=== PATIENT | male | born 1945 | race African-American/Black ===

== ENCOUNTER 2016-07-08 09:13 | Outpatient (CLI) | payer MEDICARE ==
[2016-07-08 10:32] LABS: Hemoglobin A1c 6.7 % (4.0-6.0)
[2016-07-08 10:38] LABS: ALT (SGPT) 14 U/L (8-55); AST (SGOT) 10 U/L (5-34); Albumin 3.9 g/dL (3.4-4.8); Alkaline Phosphatase 89 U/L (40-150); Anion Gap 14 mmol/L (10-20); BUN (Urea Nitrogen) 8 mg/dL (8.4-25.7); Bilirubin, Total 0.7 mg/dL (0.2-1.2); Calc. Creatinine Clearance 0 mL/min (70-130); Calcium 8.9 mg/dL (7.8-10.44); Carbon Dioxide 23 mmol/L (23-31); Cardiac Risk 5.3 (Less than 4.5); Chloride 105 mmol/L (98-107); Cholesterol 165 mg/dl (< 200 Desired); Estimated GFR-MDRD Greater than 90; Globulin 3.4 g/dL (2.4-3.5); Glucose 139 mg/dL (80-115); HDL Cholesterol 31 mg/dL (>60 Neg Risk); LDL Cholesterol, Calculated 115 mg/dL; Protein, Total 7.3 g/dL (5.8-8.1); Sodium 138 mmol/L (136-145); Triglycerides 95 mg/dL (Less than 150)
[2016-07-08 10:41] LABS: #Basophils 0.1 thou/uL (0.0-0.2); #Eosinphils 0.1 thou/uL (0.0-0.7); #Lymphocytes 2.6 thou/uL (1.20-3.40); #Monocytes 0.4 thou/uL (0.11-0.59); #Neutrophils 4.7 thou/uL (1.40-6.50); %Basophils 1.4 % (0.0-1.0); %Eosinophils 1.7 % (0.0-10.0); %Lymphocytes 32.4 % (21.0-51.0); %Monocytes 5.2 % (0.0-10.0); %Neutrophils 59.3 % (42.0-75.0); Hemoglobin 15.7 g/dL (14.0-18.0); Mean Corpuscular HGB CONC 31.9 g/dL (32.0-36.0); Mean Corpuscular Hemoglobin 30.1 pg (27.0-31.0); Mean Corpuscular Volume 94.5 fl (80.0-94.0); Mean Platelet Volume 8.7 fL (7.4-10.4); Platelet Count 203 thou/uL (130-400); RBC Distribution Width 13.4 % (11.5-14.5); Red Blood Cell (RBC) Count 5.21 mill/uL (4.70-6.10); White Blood Cell (WBC) Count 7.9 thou/uL (4.8-10.8)
[2016-07-08 10:57] LABS: Free T4 (Free Thyroxine) 0.95 ng/dL (0.70-1.48); Thyroid Stimulating Hormone 0.5506 uIU/mL (0.35-4.94); Vitamin D, 25 Hydroxy 10.7 ng/ml (> 30.0)
== END 2016-07-08 09:14 | disposition home or self-care (01) ==
LOC: MADLABBHPM 09:13
PROVIDERS: ATTEND Family Medicine
DX: Z00.00 Encounter for general adult medical examination without abnormal findings (principal)
CPT/HCPCS: 36415; 80053; 80061; 82306; 83036; 84439; 84443; 85025

== ENCOUNTER 2020-06-10 18:34 | Outpatient (CLI) | payer MEDICARE ==
[2020-06-10 18:54] LABS: ALT (SGPT) 18 U/L (8-55); AST (SGOT) 11 U/L (5-34); Albumin 4.1 g/dL (3.4-4.8); Alkaline Phosphatase 91 U/L (40-110); Anion Gap 13 mmol/L (10-20); BUN (Urea Nitrogen) 7 mg/dL (8.4-25.7); Bilirubin, Total 0.6 mg/dL (0.2-1.2); Calc. Creatinine Clearance 0 mL/min (70-130); Calcium 9.2 mg/dL (7.8-10.44); Carbon Dioxide 31 mmol/L (23-31); Cardiac Risk 4.3 (Less than 4.5); Chloride 101 mmol/L (98-107); Cholesterol 149 mg/dl (< 200 Desired); Globulin 3.6 g/dL (2.4-3.5); Glucose 128 mg/dL (83-110); HDL Cholesterol 35 mg/dL (>60 Neg Risk); LDL Cholesterol, Calculated 97 mg/dL; Potassium 4.1 mmol/L (3.5-5.1); Protein, Total 7.7 g/dL (5.8-8.1); Sodium 141 mmol/L (136-145); Triglycerides 85 mg/dL (Less than 150)
[2020-06-11 12:04] LABS: Hemoglobin A1c 6.5 % (4.0-6.0)
== END 2020-06-10 18:35 | disposition home or self-care (01) ==
LOC: MADLAB 18:34
PROVIDERS: ATTEND Family Medicine
DX: E55.9 Vitamin D deficiency, unspecified (principal); E11.9 Type 2 diabetes mellitus without complications
CPT/HCPCS: 36415; 80053; 80061; 82306; 83036

== ENCOUNTER 2020-09-20 10:34 | Outpatient (CLI) | payer MEDICARE ==
[2020-09-20 11:42] LABS: #Basophils 0.1 thou/uL (0.0-0.2); #Eosinphils 0.1 thou/uL (0.0-0.7); #Lymphocytes 2.3 thou/uL (1.20-3.40); #Monocytes 0.6 thou/uL (0.11-0.59); #Neutrophils 6.7 thou/uL (1.40-6.50); %Basophils 1.4 % (0.0-1.0); %Eosinophils 1.3 % (0.0-10.0); %Lymphocytes 23.5 % (21.0-51.0); %Monocytes 6.4 % (0.0-10.0); %Neutrophils 67.4 % (42.0-75.0); Hemoglobin 14.9 g/dL (14.0-18.0); Mean Corpuscular HGB CONC 30.4 g/dL (32.0-36.0); Mean Corpuscular Hemoglobin 30.1 pg (27.0-31.0); Mean Corpuscular Volume 99.1 fL (78.0-98.0); Mean Platelet Volume 8.9 fL (7.4-10.4); Platelet Count 204 thou/uL (130-400); RBC Distribution Width 14.2 % (11.5-14.5); Red Blood Cell (RBC) Count 4.95 mill/uL (4.70-6.10); White Blood Cell (WBC) Count 9.9 thou/uL (4.8-10.8)
[2020-09-20 12:03] LABS: ALT (SGPT) 15 U/L (8-55); AST (SGOT) 9 U/L (5-34); Albumin 3.9 g/dL (3.4-4.8); Alkaline Phosphatase 71 U/L (40-110); Anion Gap 13 mmol/L (10-20); BUN (Urea Nitrogen) 10 mg/dL (8.4-25.7); Bilirubin, Total 0.6 mg/dL (0.2-1.2); Calc. Creatinine Clearance 0 mL/min (70-130); Carbon Dioxide 29 mmol/L (23-31); Cardiac Risk 4.2 (Less than 4.5); Chloride 107 mmol/L (98-107); Cholesterol 126 mg/dl (< 200 Desired); Globulin 3.2 g/dL (2.4-3.5); Glucose 116 mg/dL (83-110); HDL Cholesterol 30 mg/dL (>60 Neg Risk); LDL Cholesterol, Calculated 79 mg/dL; Potassium 4.2 mmol/L (3.5-5.1); Protein, Total 7.1 g/dL (5.8-8.1); Sodium 145 mmol/L (136-145); Triglycerides 84 mg/dL (Less than 150)
[2020-09-20 16:59] LABS: Hemoglobin A1c 6.6 % (4.0-6.0)
== END 2020-09-20 10:35 | disposition home or self-care (01) ==
LOC: MADLAB 10:34
PROVIDERS: ATTEND Family Medicine
DX: M79.89 Other specified soft tissue disorders (principal); R06.00 Dyspnea, unspecified; I10 Essential (primary) hypertension; E11.9 Type 2 diabetes mellitus without complications
CPT/HCPCS: 36415; 71046; 80053; 80061; 83036; 83880; 84443; 85025

== ENCOUNTER 2021-10-27 10:02 | Emergency (ER) | payer MEDICARE ==
[2021-10-27] MEDS ORDERED: Iopamidol 370 76% 100 ML VIAL ONE (10:19)
[2021-10-27] MEDS ORDERED: methylPREDNISolone Sod Succ/PF 125 MG/2 ML VIAL ONE (10:33)
[2021-10-27] MEDS ORDERED: Albuterol Sulfate 2.5 mg/0.5 ml Neb ONE ×3 (10:33→11:59)
[2021-10-27] MEDS ORDERED: Ipratropium Bromide 2.5 ml Neb ONE ×3 (10:33→11:59)
[2021-10-27 10:43] LABS: #Basophils 0.1 thou/uL (0.0-0.2); #Eosinphils 0.1 thou/uL (0.0-0.7); #Lymphocytes 1.4 thou/uL (1.20-3.40); #Monocytes 0.6 thou/uL (0.11-0.59); #Neutrophils 5.4 thou/uL (1.40-6.50); %Basophils 1.8 % (0.0-1.0); %Eosinophils 1.1 % (0.0-10.0); %Lymphocytes 18.5 % (21.0-51.0); %Monocytes 7.7 % (0.0-10.0); %Neutrophils 70.9 % (42.0-75.0); Hemoglobin 15.2 g/dL (14.0-18.0); Mean Corpuscular HGB CONC 28.2 g/dL (32.0-36.0); Mean Corpuscular Volume 99.5 fL (78.0-98.0); Mean Platelet Volume 9.6 fL (7.4-10.4); Platelet Count 194 thou/uL (130-400); RBC Distribution Width 15.5 % (11.5-14.5); Red Blood Cell (RBC) Count 5.44 mill/uL (4.70-6.10); White Blood Cell (WBC) Count 7.5 thou/uL (4.8-10.8)
[2021-10-27 10:56] LABS: Anisocytosis SLIGHT = 6-15 cells (100X) (0-5/hpf); Hypochromia SLIGHT = 6-15 cells (100X) (0-5/hpf); Macrocytosis SLIGHT = 6-15 cells (100X) (0-5/hpf); Microcytosis SLIGHT = 6-15 cells (100X) (0-5/hpf); Platelet Morphology Comment Appears Adequate
[2021-10-27 10:57] LABS: Stomatocytes SLIGHT = 2-5 cells (100X) (0-1/hpf); Target Cells SLIGHT = 2-5 cells (100X) (0-1/hpf)
[2021-10-27 10:58] LABS: Base Excess-Venous 5.7 mmol/L (-2.0 to 3.0); CO2 Tension (PvCO2) 78.3 mmHg (42.0-51.0); Calcium, Ionized 1.15 mmol/L (1.15-1.33); Chloride 102 mmol/L (98-107); Hemoglobin - Calc 19.8 g/dL (14.0-18.0); Potassium 3.8 mmol/L (3.5-5.1); Sodium 147 mmol/L (138-145); T. Carbon Dioxide 39.4 mmol/L (22.0-28.0)
[2021-10-27 10:59] LABS: ALT (SGPT) 24 U/L (8-55); AST (SGOT) 17 U/L (5-34); Albumin 3.7 g/dL (3.4-4.8); Alkaline Phosphatase 109 U/L (40-110); Anion Gap 15 mmol/L (10-20); BUN (Urea Nitrogen) 12 mg/dL (8.4-25.7); Bilirubin, Total 0.7 mg/dL (0.2-1.2); CK (CPK) 108 U/L (30-200); Calc. Creatinine Clearance 0 mL/min (70-130); Calcium 8.8 mg/dL (7.8-10.44); Carbon Dioxide 33 mmol/L (23-31); Chloride 100 mmol/L (98-107); Estimated GFR 80; Globulin 3.3 g/dL (2.4-3.5); Glucose 112 mg/dL (83-110); Magnesium 1.9 mg/dL (1.6-2.6); Potassium 4.1 mmol/L (3.5-5.1); Sodium 144 mmol/L (136-145)
[2021-10-27] MEDS ORDERED: Sodium Chloride 0.9% 100 ML ONE (11:34)
[2021-10-27] MEDS ORDERED: Cefepime 2 GM VIAL ONE (11:34)
[2021-10-27 11:49] LABS: SARS-CoV-2 NAA Rapid Test Not Detected (NotDetected)
[2021-10-27] MEDS ORDERED: Furosemide 40 MG/4 ML VIAL ONE (11:59)
[2021-10-27] MEDS ORDERED: Sodium Chloride 0.9% 250 ML 500 ML ONE (12:10)
[2021-10-27 12:27] LABS: Base Excess-Venous 4.2 mmol/L (-2.0 to 3.0); Bicarbonate (HCO3v) 36.9 mmol/L (22.0-28.0); CO2 Tension (PvCO2) 89.3 mmHg (42.0-51.0); Calcium, Ionized 1.12 mmol/L (1.15-1.33); Chloride 102 mmol/L (98-107); Hemoglobin - Calc 19.6 g/dL (14.0-18.0); Potassium 3.7 mmol/L (3.5-5.1); Sodium 146 mmol/L (138-145); T. Carbon Dioxide 39.6 mmol/L (22.0-28.0); vO2 Saturation-calc 96.5 % (60.0-85.0)
[2021-10-27 12:31] LABS: Prothrombin Time 13.6 sec (12.0-14.7)
[2021-10-27 12:33] LABS: PTT 31.5 sec (22.9-36.1)
[2021-10-27 12:45] LABS: D-Dimer Test Less than 0.27 *mcg/mL (0.27-0.43)
[2021-10-27 13:23] LABS: Lactic Acid 1.5 mmol/L (0.5-2.2)
[2021-10-27] MEDS ORDERED: Rocuronium Bromide 10 MG/ML (10ML VIAL) ONE (13:54)
[2021-10-27] MEDS ORDERED: Fentanyl 100 MCG/2 ML VIAL ONE (14:12)
== END 2021-10-27 14:47 | disposition short-term general hospital (02) ==
LOC: MADERS 10:02
DX: J96.92 Respiratory failure, unspecified with hypercapnia (principal); J96.91 Respiratory failure, unspecified with hypoxia; N49.2 Inflammatory disorders of scrotum; J44.1 Chronic obstructive pulmonary disease with (acute) exacerbation; I50.9 Heart failure, unspecified; J18.9 Pneumonia, unspecified organism; E11.9 Type 2 diabetes mellitus without complications; I11.0 Hypertensive heart disease with heart failure; Z20.822 Contact with and (suspected) exposure to COVID-19
CPT/HCPCS: 31500; 36416; 70450; 71045; 74177; 76870; 80053; 82330; 82550; 82803; 83605; 83690; 83735; 83880; 84443; 84484; 85025; 85379; 85610; 85730; 86140; 87040; 93005; 93976; 94760; 96365; 96366; 96367; 96375; 36415-59; J0692; J1940; J2930; J3010; J3370; J3490; J7050; J7611; Q9967

== ENCOUNTER 2021-11-14 12:08 | Inpatient (IN) | payer MEDICARE ==
[2021-11-14] MEDS ORDERED: Ondansetron ODT 4 MG TAB PO PRN (15:58)
[2021-11-14] MEDS ORDERED: Acetaminophen 325 MG TAB PO PRN (15:58)
[2021-11-14] MEDS ORDERED: Bisacodyl 5 MG TAB PO PRN (15:58)
[2021-11-14] MEDS ORDERED: Senokot S 8.6-50 MG TAB PO PRN (15:58)
[2021-11-14] MEDS: metFORMIN 500 MG TAB PO SCH (17:10)
[2021-11-14] MEDS: Carvedilol 6.25 MG TAB PO SCH (17:10)
[2021-11-14] MEDS: Senokot S 8.6-50 MG TAB PO SCH (20:07)
[2021-11-14] MEDS: hydrALAZINE 25 MG TAB PO SCH (20:16)
[2021-11-14] MEDS: Famotidine 20 MG TAB PO SCH (20:16)
[2021-11-14] MEDS: Nystatin Powder 15 GM BOT TOP SCH (20:17)
[2021-11-15] MEDS ORDERED: Ergocalciferol 1.25 MG(50,000 UNITS) CAP PO SCH (09:00)
[2021-11-15] MEDS: Enoxaparin Sodium 40 MG/0.4 ML SYRINGE SC SCH (09:23)
[2021-11-15] MEDS: Carvedilol 6.25 MG TAB PO SCH ×2 (09:24→17:03)
[2021-11-15] MEDS: NIFEdipine XL 30 MG TAB PO SCH (09:24)
[2021-11-15] MEDS: metFORMIN 500 MG TAB PO SCH ×2 (09:24→17:03)
[2021-11-15] MEDS: Aspirin Chewable 81 MG TAB PO SCH (09:24)
[2021-11-15] MEDS: Losartan 25 MG TAB PO SCH (09:25)
[2021-11-15] MEDS: Nystatin Powder 15 GM BOT TOP SCH ×2 (09:26→20:24)
[2021-11-15] MEDS: hydrALAZINE 25 MG TAB PO SCH ×3 (09:26→20:24)
[2021-11-15] MEDS: predniSONE 10 MG TAB PO SCH (09:26)
[2021-11-15] MEDS: Senokot S 8.6-50 MG TAB PO SCH ×2 (09:27→20:17)
[2021-11-15] MEDS: Tamsulosin HCl 0.4 MG CAP PO SCH (09:30)
[2021-11-15] MEDS ORDERED: Loperamide HCl 2 MG CAP PO PRN (11:09)
[2021-11-15] MEDS: Famotidine 20 MG TAB PO SCH (20:24)
[2021-11-16 02:03] VITALS: BMI 27.3
[2021-11-16] MEDS: NIFEdipine XL 30 MG TAB PO SCH (08:21)
[2021-11-16] MEDS: Aspirin Chewable 81 MG TAB PO SCH (08:22)
[2021-11-16] MEDS: Losartan 25 MG TAB PO SCH (08:22)
[2021-11-16] MEDS: hydrALAZINE 25 MG TAB PO SCH ×3 (08:22→20:11)
[2021-11-16] MEDS: metFORMIN 500 MG TAB PO SCH ×2 (08:22→16:55)
[2021-11-16] MEDS: predniSONE 10 MG TAB PO SCH (08:22)
[2021-11-16] MEDS: Tamsulosin HCl 0.4 MG CAP PO SCH (08:22)
[2021-11-16] MEDS: Carvedilol 6.25 MG TAB PO SCH ×2 (08:22→16:54)
[2021-11-16] MEDS: Enoxaparin Sodium 40 MG/0.4 ML SYRINGE SC SCH (08:22)
[2021-11-16] MEDS: Nystatin Powder 15 GM BOT TOP SCH ×2 (08:23→20:12)
[2021-11-16] MEDS: Senokot S 8.6-50 MG TAB PO SCH (08:23)
[2021-11-16] MEDS: Famotidine 20 MG TAB PO SCH (20:11)
[2021-11-17 05:53] LABS: Anion Gap 12 mmol/L (10-20); BUN (Urea Nitrogen) 6 mg/dL (8.4-25.7); Calc. Creatinine Clearance 133 mL/min (70-130); Carbon Dioxide 28 mmol/L (23-31); Chloride 105 mmol/L (98-107); Estimated GFR 99; Glucose 109 mg/dL (83-110); Sodium 143 mmol/L (136-145)
[2021-11-17 06:17] LABS: Potassium 2.4 mmol/L (3.5-5.1)
[2021-11-17] MEDS ORDERED: Potassium Chloride 20 MEQ TAB PO SCH ×2 (06:30→14:00)
[2021-11-17] MEDS: Enoxaparin Sodium 40 MG/0.4 ML SYRINGE SC SCH (09:06)
[2021-11-17] MEDS: Tamsulosin HCl 0.4 MG CAP PO SCH (09:06)
[2021-11-17] MEDS: Losartan 25 MG TAB PO SCH (09:06)
[2021-11-17] MEDS: metFORMIN 500 MG TAB PO SCH ×2 (09:06→17:03)
[2021-11-17] MEDS: Famotidine 20 MG TAB PO SCH ×2 (09:07→21:10)
[2021-11-17] MEDS: NIFEdipine XL 30 MG TAB PO SCH (09:07)
[2021-11-17] MEDS: Carvedilol 6.25 MG TAB PO SCH ×2 (09:07→17:03)
[2021-11-17] MEDS: Aspirin Chewable 81 MG TAB PO SCH (09:07)
[2021-11-17] MEDS: Nystatin Powder 15 GM BOT TOP SCH ×2 (09:07→21:11)
[2021-11-17] MEDS: hydrALAZINE 25 MG TAB PO SCH ×3 (09:09→21:10)
[2021-11-18 05:39] LABS: Anion Gap 13 mmol/L (10-20); BUN (Urea Nitrogen) 6 mg/dL (8.4-25.7); Calc. Creatinine Clearance 135 mL/min (70-130); Calcium 8.4 mg/dL (7.8-10.44); Carbon Dioxide 29 mmol/L (23-31); Chloride 104 mmol/L (98-107); Estimated GFR 99; Glucose 104 mg/dL (83-110); Sodium 143 mmol/L (136-145)
[2021-11-18 05:48] LABS: Potassium 2.7 mmol/L (3.5-5.1)
[2021-11-18] MEDS ORDERED: Potassium Chloride 20 MEQ TAB PO SCH (06:45)
[2021-11-18] MEDS: Potassium Chloride 20 MEQ TAB PO SCH (08:29)
[2021-11-18] MEDS: hydrALAZINE 25 MG TAB PO SCH ×3 (08:30→21:28)
[2021-11-18] MEDS: Famotidine 20 MG TAB PO SCH ×2 (08:30→21:29)
[2021-11-18] MEDS: Losartan 25 MG TAB PO SCH (08:30)
[2021-11-18] MEDS: Enoxaparin Sodium 40 MG/0.4 ML SYRINGE SC SCH (08:30)
[2021-11-18] MEDS: metFORMIN 500 MG TAB PO SCH ×2 (08:30→17:10)
[2021-11-18] MEDS: Aspirin Chewable 81 MG TAB PO SCH (08:30)
[2021-11-18] MEDS: Tamsulosin HCl 0.4 MG CAP PO SCH (08:30)
[2021-11-18] MEDS: Nystatin Powder 15 GM BOT TOP SCH ×2 (08:31→21:31)
[2021-11-18] MEDS: Carvedilol 6.25 MG TAB PO SCH ×2 (08:31→17:10)
[2021-11-18] MEDS: NIFEdipine XL 30 MG TAB PO SCH (08:31)
[2021-11-18] MEDS ORDERED: Bupropion 150 MG XL TAB PO SCH (14:00)
[2021-11-19 05:36] LABS: Anion Gap 12 mmol/L (10-20); BUN (Urea Nitrogen) 6 mg/dL (8.4-25.7); Calc. Creatinine Clearance 134 mL/min (70-130); Calcium 8.7 mg/dL (7.8-10.44); Carbon Dioxide 28 mmol/L (23-31); Chloride 104 mmol/L (98-107); Estimated GFR 100; Glucose 111 mg/dL (83-110); Potassium 3.2 mmol/L (3.5-5.1); Sodium 141 mmol/L (136-145)
[2021-11-19] MEDS: Losartan 25 MG TAB PO SCH (08:02)
[2021-11-19] MEDS: Aspirin Chewable 81 MG TAB PO SCH (08:03)
[2021-11-19] MEDS: Potassium Chloride 20 MEQ TAB PO SCH ×2 (08:03→17:08)
[2021-11-19] MEDS: metFORMIN 500 MG TAB PO SCH ×2 (08:03→17:08)
[2021-11-19] MEDS: Bupropion 150 MG XL TAB PO SCH (08:03)
[2021-11-19] MEDS: NIFEdipine XL 30 MG TAB PO SCH (08:03)
[2021-11-19] MEDS: Famotidine 20 MG TAB PO SCH ×2 (08:03→21:04)
[2021-11-19] MEDS: Tamsulosin HCl 0.4 MG CAP PO SCH (08:03)
[2021-11-19] MEDS: hydrALAZINE 25 MG TAB PO SCH ×3 (08:03→21:03)
[2021-11-19] MEDS: Carvedilol 6.25 MG TAB PO SCH ×2 (08:03→17:08)
[2021-11-19] MEDS: Nystatin Powder 15 GM BOT TOP SCH ×2 (08:04→21:04)
[2021-11-19] MEDS: Enoxaparin Sodium 40 MG/0.4 ML SYRINGE SC SCH (08:04)
[2021-11-20 05:44] LABS: Anion Gap 13 mmol/L (10-20); BUN (Urea Nitrogen) 5 mg/dL (8.4-25.7); Calc. Creatinine Clearance 130 mL/min (70-130); Calcium 8.5 mg/dL (7.8-10.44); Carbon Dioxide 30 mmol/L (23-31); Chloride 103 mmol/L (98-107); Estimated GFR 99; Glucose 94 mg/dL (83-110); Potassium 3.7 mmol/L (3.5-5.1); Sodium 142 mmol/L (136-145)
[2021-11-20] MEDS: Bupropion 150 MG XL TAB PO SCH (08:27)
[2021-11-20] MEDS: metFORMIN 500 MG TAB PO SCH ×2 (08:27→16:26)
[2021-11-20] MEDS: Tamsulosin HCl 0.4 MG CAP PO SCH (08:27)
[2021-11-20] MEDS: Enoxaparin Sodium 40 MG/0.4 ML SYRINGE SC SCH (08:27)
[2021-11-20] MEDS: Carvedilol 6.25 MG TAB PO SCH ×2 (08:28→16:26)
[2021-11-20] MEDS: Losartan 25 MG TAB PO SCH (08:28)
[2021-11-20] MEDS: hydrALAZINE 25 MG TAB PO SCH ×3 (08:28→21:24)
[2021-11-20] MEDS: Famotidine 20 MG TAB PO SCH ×2 (08:28→21:24)
[2021-11-20] MEDS: NIFEdipine XL 30 MG TAB PO SCH (08:28)
[2021-11-20] MEDS: Potassium Chloride 20 MEQ TAB PO SCH ×2 (08:28→16:26)
[2021-11-20] MEDS: Aspirin Chewable 81 MG TAB PO SCH (08:28)
[2021-11-20] MEDS: Nystatin Powder 15 GM BOT TOP SCH ×2 (08:33→21:25)
[2021-11-21 05:31] LABS: Anion Gap 13 mmol/L (10-20); BUN (Urea Nitrogen) 6 mg/dL (8.4-25.7); Calc. Creatinine Clearance 124 mL/min (70-130); Carbon Dioxide 29 mmol/L (23-31); Chloride 102 mmol/L (98-107); Estimated GFR 98; Glucose 91 mg/dL (83-110); Potassium 4.1 mmol/L (3.5-5.1); Sodium 140 mmol/L (136-145)
[2021-11-21] MEDS: hydrALAZINE 25 MG TAB PO SCH ×2 (08:12→14:50)
[2021-11-21] MEDS: Losartan 25 MG TAB PO SCH (08:12)
[2021-11-21] MEDS: Enoxaparin Sodium 40 MG/0.4 ML SYRINGE SC SCH (08:12)
[2021-11-21] MEDS: Carvedilol 6.25 MG TAB PO SCH (08:12)
[2021-11-21] MEDS: Tamsulosin HCl 0.4 MG CAP PO SCH (08:12)
[2021-11-21] MEDS: Potassium Chloride 20 MEQ TAB PO SCH (08:12)
[2021-11-21] MEDS: metFORMIN 500 MG TAB PO SCH (08:13)
[2021-11-21] MEDS: Bupropion 150 MG XL TAB PO SCH (08:13)
[2021-11-21] MEDS: Aspirin Chewable 81 MG TAB PO SCH (08:13)
[2021-11-21] MEDS: Famotidine 20 MG TAB PO SCH (08:13)
[2021-11-21] MEDS: NIFEdipine XL 30 MG TAB PO SCH (08:13)
[2021-11-21] MEDS: Nystatin Powder 15 GM BOT TOP SCH (08:14)
[2021-11-21 14:17] VITALS: BP 136/67; TEMP 98.7
== END 2021-11-21 15:20 | disposition home health service (06) | DRG 948 ==
LOC: MADMS 12:43
PROVIDERS: ADMIT Family Medicine; ATTEND Family Medicine
DX: R53.81 Other malaise (principal); I50.32 Chronic diastolic (congestive) heart failure; N13.8 Other obstructive and reflux uropathy; J96.11 Chronic respiratory failure with hypoxia; J44.9 Chronic obstructive pulmonary disease, unspecified; I11.0 Hypertensive heart disease with heart failure; N40.1 Benign prostatic hyperplasia with lower urinary tract symptoms; R33.8 Other retention of urine; R19.7 Diarrhea, unspecified; E87.6 Hypokalemia; F17.210 Nicotine dependence, cigarettes, uncomplicated; E55.9 Vitamin D deficiency, unspecified; E11.51 Type 2 diabetes mellitus with diabetic peripheral angiopathy without gangrene; E66.9 Obesity, unspecified; Z79.899 Other long term (current) drug therapy; Z79.82 Long term (current) use of aspirin; Z79.02 Long term (current) use of antithrombotics/antiplatelets; Z88.0 Allergy status to penicillin; Z68.30 Body mass index [BMI] 30.0-30.9, adult
CPT/HCPCS: 36415; 36416; 80048; 84153; 87811; 94640; J1650; J7512; J7620

== ENCOUNTER 2022-03-30 10:25 | Outpatient (CLI) | payer MEDICARE | END 2022-03-30 10:26 | disposition home or self-care (01) | LOC: MADRAD 10:25 | PROVIDERS: ATTEND Internal Medicine | DX: J44.9 Chronic obstructive pulmonary disease, unspecified (principal) | CPT/HCPCS: 71046 ==